=== PATIENT | male | born 2000 | race Caucasian/White ===

== ENCOUNTER 2020-03-12 11:00 | Emergency (ER) | payer BC ==
[2020-03-12 11:14] VITALS: BP 127/81; PULSE 95; RESP 16; TEMP 99.4
--- NOTE | 2020-03-12 11:30 | ED ---
Upper Extremity HPI - General Chief Complaint: Extremity Injury, Upper Stated Complaint: fall injury Time Seen by Provider: 03/12/20 11:15 Source: patient, RN notes reviewed Mode of arrival: ambulatory Limitations: no limitations - History of Present Illness Initial Comments: 19-year-old male presents emergency Department chief complaint of a fall. Lauren ent states he fell on some steps messing around with his friends around 4:30 AM. Patient states that he had no head injury no loss conscious. Denies any neck, back pain. Patient complains of right shoulder pain. He states that he has full range of motion but states it's painful. Patient has pain. The shoulder denies any lower extremity symptoms patient states she's had no major surgeries or injuries to his right shoulder. - Related Data Previous Rx's Medication Instructions Recorded Ibuprofen [Motrin] 600 mg PO Q8HR PRN #30 tab 03/12/20 Allergies Allergy/AdvReac Type Severity Reaction Status Date / Time No Known Allergies Allergy Verified 03/12/20 11:14 Review of Systems ROS Statement: Those systems with pertinent positive or pertinent negative responses have been documented in the HPI. ROS Other: All systems not noted in ROS Statement are negative. Past Medical History Past Medical History: No Reported History History of Any Multi-Drug Resistant Organisms: None Reported Past Surgical History: Tonsillectomy Additional Past Surgical History / Comment(s): pyloric stenosis Past Psychological History: No Psychological Hx Reported Smoking Status: Vaper Past Alcohol Use History: Occasional Past Drug Use History: None Reported General Exam Limitations: no limitations General appearance: alert, in no apparent distress Head exam: Present: atraumatic, normocephalic, normal inspection Neck exam: Present: normal inspection, full ROM. Absent: tenderness, meningismus, lymphadenopathy Respiratory exam: Present: normal lung sounds bilaterally. Absent: respiratory distress, wheezes, rales, rhonchi, stridor Cardiovascular Exam: Present: regular rate, normal rhythm, normal heart sounds. Absent: systolic murmur, diastolic murmur, rubs, gallop, clicks Extremities exam: Present: other (Right shoulder there is an abrasion over the AC joint and mild tenderness patient does have full range of motion, neurovascular intact equal strength there is no tenderness over the scapula remaining extremity exam within normal limits) Neurological exam: Present: alert, reflexes normal. Absent: oriented X3, motor sensory deficit Skin exam: Present: warm, dry, intact, normal color. Absent: rash Course Vital Signs 03/12/20 11:11 Temperature 99.4 F Pulse Rate 95 Respiratory 16 Rate Blood Pressure 127/81 O2 Sat by Pulse 99 Oximetry Medical Decision Making - Medical Decision Making 19-year-old male presented for fallen down steps. X-ray shows evidence of AC s eparation. Patient has no acute fracture. Patient neurologically intact and has no other noted injuries. Patient was placed on anti-inflammatories, follow- up with orthopedics discussed possibility of physical therapy. Disposition Clinical Impression: Separation of right acromioclavicular joint Disposition: HOME SELF-CARE Condition: Stable Instructions (If sedation given, give patient instructions): Acromioclavicular Separation (ED) Additional Instructions: Please return to the Emergency Department if symptoms worsen or any other concerns. Prescriptions: Ibuprofen [Motrin] 600 mg PO Q8HR PRN #30 tab PRN Reason: Pain Is patient prescribed a controlled substance at d/c from ED?: No Referrals: None,Stated [Primary Care Provider] - 1-2 days John Vaughan MD [STAFF PHYSICIAN] - 1-2 days Time of Disposition: 11:40
--- NOTE | 2020-03-12 11:41 | XR ---
EXAMINATION TYPE: XR shoulder complete RT DATE OF EXAM: 03/12/2020 CLINICAL HISTORY: Fall injury with pain TECHNIQUE: Three views of the right shoulder are obtained. COMPARISON: None. FINDINGS: There is no acute fracture/dislocation evident in the right shoulder. The acromioclavicul ar and glenohumeral joint spaces appear within normal limits. The visualized ribs are intact and unr emarkable. IMPRESSION: There is no acute fracture or dislocation in the right shoulder.
== END 2020-03-12 12:00 | disposition home or self-care (01) ==
LOC: EC 11:00
DX: S43.101A Unspecified dislocation of right acromioclavicular joint, initial encounter (principal); F17.290 Nicotine dependence, other tobacco product, uncomplicated; W10.9XXA Fall (on) (from) unspecified stairs and steps, initial encounter
CPT/HCPCS: 29105; 99283